=== PATIENT | female | born 1945 | race Two or more races ===

== ENCOUNTER 2018-04-04 21:01 | Inpatient (IN) | payer MEDICARE, BC ==
[~2018-04-04] VITALS: Ht 160 cm; Wt 59.4 kg
--- NOTE | 2018-04-04 21:10 | NUR ---
PT BIBRA FROM HOME C/C HEADACHE SINCE 1800. + N/V, +DIZZINESS, +PHOTOPHOBIA. 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 RECENT R KNEE SURGERY. AFEBRILE. VSS. PT ON MONITOR IN BED 10 WITH FAMILY AT BEDSIDE. WILL CONTINUE TO MONITOR.
[2018-04-04] MEDS ORDERED: METOCLOPRAMIDE HCL 10 MG/2 ML VIAL ONE (21:28)
[2018-04-04] MEDS ORDERED: IV NS 0.9% 1,000 ML BAG IV ONE (21:30)
[2018-04-04] MEDS ORDERED: METOCLOPRAMIDE HCL 10 MG/2 ML VIAL IV ONE (21:30)
[2018-04-04 21:39] LABS: BASOPHILS % (AUTO) 0.4 % (0.0-2.0); EOSINOPHILS % (AUTO) 0.2 % (0.0-6.0); HEMATOCRIT 37 % (33-45); HEMOGLOBIN 12.4 g/dL (11.5-14.8); LYMPHOCYTES # (AUTO) 1.9 /CMM (0.8-4.8); MEAN CORPUSCULAR HGB CONC 34 g/dl (31.0-36.0); MEAN CORPUSCULAR VOLUME 87 fL (82-100); MONOCYTES # (AUTO) 0.6 /CMM (0.1-1.30); MONOCYTES % (AUTO) 7.6 % (2.0-12.0); NEUTROPHILS # (AUTO) 5.8 /CMM (1.8-8.9); NEUTROPHILS % (AUTO) 68.8 % (43.0-81.0); PLATELET COUNT (AUTO) 203 /CMM (150-450); RED BLOOD CELL COUNT(AUTO) 4.25 MIL/uL (4.0-5.2); WHITE BLOOD COUNT (AUTO) 8.4 K/uL (4.3-11.0)
[2018-04-04 21:46] LABS: CALCIUM, SERUM 8.9 mg/dL (8.5-10.1); CARBON DIOXIDE 28 mmol/L (21-32); CHLORIDE 98 mmol/L (98-107); GLUCOSE 106 mg/dL (74-106); POTASSIUM 3.5 mmol/L (3.5-5.1); SODIUM SERUM 135 mmol/L (136-145); UREA NITROGEN, BLOOD 13 mg/dL (7-18)
[2018-04-04] MEDS ORDERED: HYDROMORPHONE 1 MG/1 ML DISP.SYRIN IV ONE (22:30)
[2018-04-04] MEDS ORDERED: ONDANSETRON HCL/PF - ER 4 MG/2 ML VIAL IV ONE (22:30)
[2018-04-04] MEDS ORDERED: HYDROMORPHONE INJ 0.5 MG/0.5 ML SYRINGE ONE (22:34)
[2018-04-04] MEDS ORDERED: ONDANSETRON HCL/PF 4 MG/2 ML VIAL ONE (22:34)
[2018-04-04] MEDS ORDERED: IOHEXOL-350 100 ML VIAL IV ONE ×2 (22:48→23:26)
[2018-04-04] MEDS ORDERED: CT SWABBABLE VALVE TRANS SET 1 EA INFUS.SET MC ONE ×2 (22:49→23:26)
--- NOTE | 2018-04-04 23:15 | NUR ---
Patient is resting comfortably in bed with eyes closed. Easily aroused. VSS. FAMILY AT BEDSIDE.
[2018-04-04] MEDS ORDERED: IV NS 0.9% 250 ML IV ONE (23:26)
[2018-04-05] MEDS ORDERED: IV NS 0.9% 1,000 ML IV PRN (00:33)
--- NOTE | 2018-04-05 00:55 | NUR ---
REPORT GIVEN TO MARLA SHANNON FOR MALINDA
[2018-04-05] MEDS ORDERED: Z GUARD REMEDY 2 OZ OINT TP PRN (01:00)
[2018-04-05] MEDS ORDERED: ONDANSETRON HCL/PF 4 MG/2 ML VIAL IVP PRN (01:00)
[2018-04-05] MEDS ORDERED: ZOLPIDEM TARTRATE 5 MG TABLET PO PRN (01:00)
[2018-04-05] MEDS ORDERED: MAG HYDROX/AL HYDROX/SIMETH 30 ML UDC PO PRN (01:00)
[2018-04-05] MEDS ORDERED: ACETAMINOPHEN 325 MG TABLET PO PRN (01:00)
[2018-04-05] MEDS ORDERED: MAGNESIUM HYDROXIDE 30 ML UDC PO PRN (01:00)
--- NOTE | 2018-04-05 01:13 | NUR ---
PT REC'D 2 ICE PACKS FOR LLE.
--- NOTE | 2018-04-05 02:30 | NUR ---
SIDING APPLICATOR NOTE: RECEIVED PATIENT FROM ER, NO ACUTE DISTRESS NOTED. BREATHING EVEN AND UNLABORED, NO SOB NOTED. IV TO RAC IN PLACE. ORIENTED PATIENT TO ROOM AND USE OF CALL LIGHT. BED LOCKED AND IN LOWEST POSITION, CALL LIGHT IN REACH. WILL CONTINUE TO MONITOR.
[2018-04-05 02:45] VITALS: BP 117/79
[2018-04-05] MEDS: HYDROCODONE/APAP 5/325MG 1 EACH TABLET PO PRN ×3 (03:08→15:26)
[2018-04-05] MEDS: ENOXAPARIN SODIUM 40 MG/0.4 ML DISP.SYRIN SQ SCH ×2 (03:09→03:20)
--- NOTE | 2018-04-05 03:15 | NUR ---
ROTARY DRILLER HELPER NOTE: PATIENT WITH ORDER FOR LOVENOX, PATIENT REFUSES LOVENOX SINCE PATIENT IS ON ASPIRIN 325MG DAILY. PATIENT ALSO WANTS TO BE INFORMED BEFORE ANY PROCEDURE OR CONSULTS. PATIENT IS DR. FIGUEROA AT [phone]. PATIENT HAD LEFT KNEE PARTIAL REPLACEMENT ON 03/31/18 AT [facility], THEY ALSO REFUSE ORTHO CONSULT. WILL CONTINUE TO MONITOR.
[2018-04-05] MEDS ORDERED: LOSA50TA39 PO (03:43)
[2018-04-05] MEDS ORDERED: EZET10TA14 PO (03:43)
[2018-04-05] MEDS ORDERED: LEVO100T PO (03:43)
[2018-04-05] MEDS ORDERED: ROSU10TA2 PO (03:43)
[2018-04-05] MEDS ORDERED: ASPI-992 PO (03:43)
--- NOTE | 2018-04-05 06:30 | NUR ---
GENERAL INTERNAL MEDICINE PHYSICIAN NOTE: PATIENT RESTING IN BED, NO ACUTE DISTRESS NOTED. BREATHING EVEN AND UNLABORED, NO SOB NOTED. IV TO RAC IN PLACE, INFUSING NS AT 75ML/HR. TELE READING SINUS EDIN TO SR 50-60 HR. BED LOCKED AND IN LOWEST POSITION, CALL LIGHT IN REACH. WILL ENDORSE TO DAY NURSE TO CONTINUE WITH PLAN OF CARE.
[2018-04-05 06:52] LABS: BASOPHILS % (AUTO) 0.3 % (0.0-2.0); EOSINOPHILS % (AUTO) 0.4 % (0.0-6.0); HEMATOCRIT 34 % (33-45); HEMOGLOBIN 11.7 g/dL (11.5-14.8); LYMPHOCYTES # (AUTO) 1.6 /CMM (0.8-4.8); LYMPHOCYTES % (AUTO) 24.2 % (20.0-44.0); MEAN CORPUSCULAR HGB CONC 34 g/dl (31.0-36.0); MEAN CORPUSCULAR VOLUME 86 fL (82-100); MONOCYTES # (AUTO) 0.5 /CMM (0.1-1.30); MONOCYTES % (AUTO) 6.8 % (2.0-12.0); NEUTROPHILS # (AUTO) 4.6 /CMM (1.8-8.9); NEUTROPHILS % (AUTO) 68.3 % (43.0-81.0); PLATELET COUNT (AUTO) 200 /CMM (150-450); RED BLOOD CELL COUNT(AUTO) 3.99 MIL/uL (4.0-5.2); WHITE BLOOD COUNT (AUTO) 6.7 K/uL (4.3-11.0)
[2018-04-05 06:57] LABS: CHOLESTEROL 126 mg/dL (<200); HDL CHOLESTEROL 62 mg/dL (40-60); LDL 55 mg/dL (0-99); TRIGLYCERIDES 91 mg/dL (30-150)
[2018-04-05 06:59] LABS: ALANINE AMINOTRANSFERASE 33 U/L (12-78); ALBUMIN 3.1 g/dL (3.4-5.0); ALKALINE PHOSPHATASE 37 U/L (46-116); ASPARTATE AMINOTRANSFERASE 32 U/L (15-37); BILIRUBIN,DIRECT 0.1 mg/dL (0.0-0.2); BILIRUBIN,TOTAL 0.6 mg/dL (0.2-1.0); CALCIUM, SERUM 8.4 mg/dL (8.5-10.1); CARBON DIOXIDE 28 mmol/L (21-32); CHLORIDE 102 mmol/L (98-107); CREATININE 0.8 mg/dL (0.6-1.3); GLUCOSE 96 mg/dL (74-106); MAGNESIUM 2.4 mg/dL (1.8-2.4); PHOSPHORUS 4.8 mg/dL (2.5-4.9); POTASSIUM 3.6 mmol/L (3.5-5.1); SODIUM SERUM 138 mmol/L (136-145); UREA NITROGEN, BLOOD 9 mg/dL (7-18)
[2018-04-05] MEDS ORDERED: PANTOPRAZOLE 40 MG TABLET.DR PO SCH (07:30)
--- NOTE | 2018-04-05 08:00 | NUR ---
MS RN RECEIVED ON BED, AWAKE,ALERT,ORIENTED X4,NOT IN ANY FORM OF DISTRESS, RESPIRATIONS EVEN AND UNLABORED,NO SOB NOTED, LUNGS ARE CLEAR, ABDOMEN SOFT,POSITIVE BOWEL SOUNDS,DENIES PAIN AT THIS TIME, WILL MONITOR PATIENT'S CONDITION.
--- NOTE | 2018-04-05 09:00 | NUR ---
MS GUTIÉRREZ BREAKFAST SERVED,DUE MEDS GIVEN, TOLERATED WELL.
--- NOTE | 2018-04-05 10:00 | NUR ---
MS RN WAS SEEN BY NUROLOGY PULL THROUGH HOOKER W/ ORDERS MADE AND CARRIED OUT.
[2018-04-05 10:04] VITALS: BP 136/74
--- NOTE | 2018-04-05 14:00 | NUR ---
MS RN CAME BACK FROM MRI W/ RESULT,WILL MONITOR PATIENT.
[2018-04-05 16:00] VITALS: BP 131/79
--- NOTE | 2018-04-05 16:00 | NUR ---
MS RN CALLED AND TEXT DR. TURK DUE TO WANTS PT TO GO HOME W/ [facility], DR TURK SAID THAT HE WILL COME AND DISCHARGE THE PATIENT.
--- NOTE | 2018-04-05 16:57 | NUR ---
MS RN STILL WAITING FOR TO COME.
--- NOTE | 2018-04-05 18:00 | NUR ---
MS RN DR. TURK CAME, PRESCRIPTION GIVEN, WENT HOME ACCOMPANIED BY , NO DISTRESS NOTED. TO HAVE A FOLLOW UP W/ PRIMARY IN ONE WEEK.
== END 2018-04-05 17:30 | disposition home or self-care (01) | DRG 66 ==
LOC: ER 21:03 → TELE1 23:59 → TELE 04-05 00:51 → MED 04-05 08:51
PROVIDERS: ADMIT Internal Medicine; ATTEND Internal Medicine
DX: I60.9 Nontraumatic subarachnoid hemorrhage, unspecified (principal); R51 Headache; I10 Essential (primary) hypertension; Z79.82 Long term (current) use of aspirin; Z96.659 Presence of unspecified artificial knee joint
CPT/HCPCS: 36415; 70450-TC; 70496-TC; 70551-TC; 80048-TC; 80061-TC; 80076-TC; 83735-TC; 84100-TC; 85025-TC; 87081-TC; G0378; J1650; J2405; J2765; J7030; J7050; Q9967